=== PATIENT | male | born 1950 | race Caucasian/White ===

== ENCOUNTER 2019-08-29 14:05 | Emergency (ER) | payer MEDICARE ==
[2019-08-29 14:12] VITALS: BP 131/83
--- NOTE | 2019-08-29 14:29 | ED Physician Documentation ---
History of Present Illness - Stated complaint Stated Complaint: RT FACIAL SWELLING - Chief complaint Chief Complaint: Allergic Rx - History obtained from History obtained from: Patient - History of Present Illness Timing: Prior to arrival Pain level max: 2 Pain level now: 0 Quality: twinge Radiates to: non radiating Improved by: eating Worsened by: nothing; self resolving - Treatment prior to arrival Treatment prior to arrival: none - Additonal information Additional information: 69 year old male here with resolving right sided jaw/facial swelling that began abruptly about 1.5 hours prior to arrival. He was ordering food, turned his neck to the right and noted pain and swelling at the angle of the righ tjaw and neck. there was no erythema. He was concerned and decided to come to the ED. enroute, he began eating a shrimp sandwich. Upon arrival to the ED., the swelling had nearly resolved at no time did he have CP, SOA, dyspnea. no tongue or lip swelling. no dysphonia. no fevers. He denies dental pain, ar pain. No hx of similar. Pt reports normal childhood immunizations including MMR. Review of Systems Constitutional: reports: Fever Ears: denies: Ear pain, Tinnitus/ringing, Foreign body Nose: reports: Reviewed and negative Throat: reports: Other (self resolving swelling at the angle of the mandible right jaw). denies: Dental pain / toothache, Oral lesions / sores Cardiac: denies: Chest pain / pressure, Palpitations, Calf pain Respiratory: denies: Dyspnea, Cough, Wheezing Skin: denies: Rash, Lesions Neurologic: denies: Generalized weakness, Focal weakness, Syncope PD PAST MEDICAL HISTORY - Past Medical History Cardiovascular: None Respiratory: None Neuro: None Endocrine/Autoimmune: None GI: None - Past Surgical History Past Surgical History: No - Allergies Allergies/Adverse Reactions: Allergies Allergy/AdvReac Type Severity Reaction Status Date / Time No Known Drug Allergies Allergy Verified 08/29/19 14:09 - Social History Does the pt smoke?: Yes Smoking Status: Current every day smoker Does the pt have substance abuse?: No - Family History Family history: reports: Unknown - Immunizations Immunizations are current?: Yes - POLST Patient has POLST: No PD ED PE NORMAL - General General: Alert and oriented X 3 - HEENT HEENT: Atraumatic, PERRL, EOMI, Other (cerumen impaction both ears) - Neck Neck: Supple, no meningeal sign, No adenopathy - Cardiac Cardiac: RRR, No murmur - Respiratory Respiratory: No respiratory distress - Abdomen Abdomen: Normal bowel sounds - Back Back: No CVA TTP - Derm Derm: Normal color - Extremities Extremities: No deformity - Neuro Neuro: Alert and oriented X 3, wire stripper 2-12 intact, No motor deficit - Free text exam Free text exam: no swelling noted of the neck bilaterally. no swelling of the face, parotid gland bilaterally. no tenderness with palpation of the parotid gland. Full ROM of neck in all planes. normal opening of mouth,jaw. no trismus. Poor dentition globally, but no dentalgia elicited and no e/o gum line abscess Results - Vitals Vitals: Vital Signs - 24 hr 08/29/19 14:09 Temperature 36.5 C Heart Rate 96 Respiratory 16 Rate Blood Pressure 131/83 H O2 Saturation 96 Oxygen O2 Source Room air PD MEDICAL DECISION MAKING - ED course Complexity details: reviewed results, considered differential, d/w patient ED course: 69 year old male presented with now fully resolved facial swelling that he reports was on the angle of the mandible and right parotid gland. Coincidentally this resolved with eating food - I suspect that he passed a salivary stone - I do not feel he has an infectious etiology requiring abx. he has no fevers and this was very quickly self resolved, therefore infectious parotitis is felt less likely - he is higher risk as he is a smoker and he brooks shave poor dentition. I advised close f/u with his pcp withing the week and to return immediately for any further concerns or new findings. Departure - Departure Clinical Impression: Facial swelling, Parotitis not due to mumps Condition: Good Follow-Up: Dian Coppola MD [Primary Care Provider] - Within 1 week Comments: Wilian, I think you may have passed a salivary stone. I do not think you have a bacterial infection of your parotid gland and I do not feel you need antibitoics today please see a dentist as soon as possible, since you do have many teeth in need of repair If you develop facial swelling again, have difficulty talking swallowing or have fevers, return here for a second look
== END 2019-08-29 14:51 | disposition home or self-care (01) ==
LOC: ED 14:05
DX: K11.20 Sialoadenitis, unspecified (principal); F17.200 Nicotine dependence, unspecified, uncomplicated
CPT/HCPCS: 99282; 99284